=== PATIENT | male | born 1970 ===

== ENCOUNTER 2022-01-03 11:47 | Emergency (ER) | payer BC ==
[~2022-01-03] VITALS: Ht 177.8 cm; Wt 122.7 kg
[2022-01-03 12:47] VITALS: TEMP 99.3
[2022-01-03] MEDS ORDERED: CLEOCIN HCL300 MG PO (13:31)
[2022-01-03 14:00] VITALS: BP 105/73; PULSE 101
== END 2022-01-03 14:00 | disposition home or self-care (01) ==
LOC: COL.ER 11:47
DX: K61.1 Rectal abscess (principal)
CPT/HCPCS: J0696